=== PATIENT | female | born 1960 | race Caucasian/White ===

== ENCOUNTER 2017-02-02 08:51 | Emergency (ER) | payer BC ==
--- NOTE | 2017-02-02 09:31 | UC ---
Throat Pain/Nasal Otis HPI - HPI Summary HPI Summary: ONSET TWO DAYS AGO WITH SORE THROAT AND HEADACHE.. NOW COUGH , CHILLS , LOW GRADE TEMP -99 AT HOME. NAUSEA, NO VOMITING. FATIGUE AND BODY ACHES, EAR PAIN. [ End ] - History of Current Complaint Chief Complaint: UCRespiratory Stated Complaint: THROAT,NAUSEA Time Seen by Provider: 02/02/17 09:23 Hx Obtained From: Patient Onset/Duration: Gradual Onset Associated Signs & Symptoms: Positive: Negative - Allergies/Home Medications Allergies/Adverse Reactions: Allergies Allergy/AdvReac Type Severity Reaction Status Date / Time Hepatitis B Virus Vaccine Allergy Intermediate Rash Verified 02/02/17 09:08 Nitrofurantoin Allergy Intermediate Vomiting Verified 02/02/17 09:05 [From Macrodantin] OTHER MEDS , UNKNOW NAMES AdvReac Unknown Unknown Uncoded 02/02/17 09:09 Reaction Details Home Medications: Home Medications Albuterol 2.5MG/3ML (0.083%)* [Ventolin 2.5 MG/3 ML NEB.MONICA*] 2.5 mg INH Q4H PRN 02/02/17 [History Confirmed 02/02/17] Albuterol HFA INHALER* [Ventolin HFA Inhaler*] 2 puff INH Q4H PRN 02/02/17 [ History Confirmed 02/02/17] Dextromethorphan-Phenylephrine [Day Time Multi-Symptom Co 10-5-325 mg] 1 cap PO PRN 02/02/17 [History] Fluticasone-Salmeterol 500-50* [Advair Diskus 500-50*] 1 puff INH BID 02/02/17 [ History Confirmed 02/02/17] Folic Acid TAB* [Folvite TAB*] 1 mg PO DAILY 02/02/17 [History Confirmed ] Loratadine [Claritin 10 MG CAP] 10 mg PO DAILY 02/02/17 [History Confirmed 02/02] Methotrexate Sodium [Trexall] 20 mg PO 02/02/17 [History] Simvastatin [Zocor 40 MG (NF)] 40 mg PO QPM 02/02/17 [History Confirmed 02/02/17 ] PMH/Surg Hx/FS Hx/Imm Hx Previously Healthy: Yes Respiratory History: Asthma - Surgical History Surgical History: Yes Surgery Procedure, Year, and Place: D&C. PLACIDO THYROID. DEVIATED SEPTUM R EPAIR. NECK LYMPH NODE EXCISION. C- SECTION - Family History Known Family History: Positive: None - Social History Occupation: Employed Full-time Lives: With Family Alcohol Use: Occasionally Substance Use Type: None Smoking Status (MU): Heavy Every Day Tobacco Smoker Type: Cigarettes Amount Used/How Often: 1 PPD Household Exposure Type: Cigarettes Review of Systems Constitutional: Fatigue ENT: Sore Throat All Other Systems Reviewed And Are Negative: Yes Physical Exam Triage Information Reviewed: Yes Appearance: Well-Appearing, No Pain Distress, Well-Nourished Vital Signs: Initial Vital Signs Temp 99 F 02/02/17 09:13 Pulse 78 02/02/17 09:13 Resp 18 02/02/17 09:13 BP 128/78 02/02/17 09:13 Pulse Ox 97 02/02/17 09:13 Vital Signs Reviewed: Yes Eye Exam: Normal ENT Exam: Normal ENT: Positive: Pharynx normal, Pharyngeal erythema, Nasal congestion, TMs normal Dental Exam: Normal Neck exam: Normal Neck: Positive: 1 Respiratory Exam: Normal Cardiovascular Exam: Normal Musculoskeletal Exam: Normal Neurological Exam: Normal Psychological Exam: Normal Skin Exam: Normal Throat Pain/Nasal Course/Dx - Course Course Of Treatment: start probiotics -- aware of SE of amox but states she has taken before without difficulty and requests diflucan as she often get yeast infection from antibiotics - Differential Dx/Diagnosis Differential Diagnosis/HQI/PQRI: Peritonsillar Abscess, Pharyngitis, Tonsillitis , URI Provider Diagnoses: strep throat Discharge - Discharge Plan Condition: Good Disposition: HOME Prescriptions: Amoxicillin (*) [Amoxicillin 875 MG (*)] 875 mg PO BID #20 tab Fluconazole [Diflucan 150 MG (NF)] 150 mg PO ONCE #1 tab Lidocaine 2% VISCOUS* 5 ml PO TID PRN #1 btl NS PRN Reason: Sore Throat Patient Education Materials: Strep Throat (ED) Referrals: Angy Coulter MD [Primary Care Provider] - 3 Days
[2017-02-02 09:34] VITALS: BP 128/78
== END 2017-02-02 09:55 | disposition home or self-care (01) ==
LOC: UCCORT 08:51
DX: J02.0 Streptococcal pharyngitis (principal); F17.210 Nicotine dependence, cigarettes, uncomplicated; J45.909 Unspecified asthma, uncomplicated
CPT/HCPCS: 87651; 99212; G0463

== ENCOUNTER 2017-11-19 08:56 | Emergency (ER) | payer BC ==
--- OUTSIDE RECORDS SUMMARY | 2017-11-19 09:12 | XMS REPORT ---
:1960 External Reference #:[id number] Author Organization [employer] Address [address] [place] [address] Phone [phone] Care Team Providers Name Role Phone Angy Coulter MD Care Team Information Steward/Stewardess Third Unavailable Angy Coulter MD Primary Care Physician Unavailable Payers Type Date Identification Numbers Payment Provider Subscriber Commercial Policy Number: [id number] [employer] Jess Feng PayID: [id number] [address] [address] Commercial Expires: 2017 Policy Number: [id number] JE[employer] Aaron Feng PayID: [id number] [address] [place] [address] Problems Description No Information Family History Date Family Member(s) Problem(s) Comments General Hearing Loss General Diabetes General Bladder Cancer General Asthma And Allergies Father Hearing Loss Father Hypercholesterolemia Father Bladder Cancer Mother Diverticulitis Mother Hypercholesterolemia Social History Type Date Description Comments Marital Status Occupation [employer] Work Status Currently Working Cigarette Use Quit 1 Year Ago ETOH Use Current Alcohol Use - 1-3 Days A Week. Recreational Drug Use Denies Drug Use Allergies, Adverse Reactions, Alerts Date Description Reaction Status Severity Comments 07/24/2009 Macrodantin active vomiting Medications Medication Date Status Form Strength Qnty SIG Indications Ordering Provider Advair Diskus / Active Misc 500-50mcg/ 2 po qd Unknown 0000 DO Simvastatin 00/ Active Tablets 40mg daily Unknown 0000 Calcium 600 + 00/ Active Tablets 600-400mg- 1 po daily Unknown D 0000 Unit Folic Acid / Active Capsules 10mg daily Unknown 0000 Methotrexate 00/ Active Tablets 6 tabs Unknown 0000 once a week Advair Diskus / Active Aerosol 500-50mcg/ 1 puff Unknown 0000 Dose twice daily Spiriva / Active Aerosol 2.5mcg/Act take 2 Unknown Respimat 0000 puffs once daily. Clindamycin 09/01/ Hx Capsules 300mg 20caps 1 po bid Connor HCL 2013 - for 10 Dieudonne, 11/07/ days M.D. 2017 Prednisone 09/01/ Hx Tablets 10mg 3tabs 1 po qam Connor, 2013 - Dieudonne, 11/07/ M.D. 2017 Zithromax 09/18/ Hx Tablets 250mg 1Pak as Estevan Ryan 2009 - directed Dieudonne, 07/30/ M.D. 2009 Prednisone 09/11/ Hx Tablets 10mg 7tabs 1 po qam X Connor 2009 - 1 WK. Dieudonne, M.D. 2009 Percocet 08/22/ Hx Tablets 5-325mg 30tabs 2 po qid Connor 2009 - prn for Dieudonne, M.D. 2009 Erythrocin 08/22/ Hx Tablets 500mg 20tabs 1 po bid Connor Stearate 2009 - days Dieudonne, 07/30/ M.D. 2009 Calcium-D / Hx Capsules 600-200mg- Unknown 0000 - Un 2009 Vitamin C / Hx Unknown 2009 Vitamin B-12 / Hx Tablets Sub 1000mcg Unknown 2009 Zocor / Hx Tablets 20mg Unknown 2009 Albuterol / Hx Nebulizer (5mg/ML) Unknown Sulfate 0000 - 0.5 2013 Bactrim DS / Hx Tablets 800-160mg 20tabs 1 po bid Unknown 2009 Simvastatin 00/ Hx Tablets 40mg Unknown 2009 Detrol LA / Hx Caps ER 4mg Qday Unknown 0000 - 24HR 2009 Tylenol 8 Hour / Hx Tablets ER 650mg 20tabs prn Unknown 2009 Simvastatin / Hx Tablets 50mg Qday Unknown 2013 Citalopram / Hx Tablets 10mg 30tabs 1 po qd Unknown Hydrobromide 2013 Acyclovir / Hx Tablets 400mg 25tabs bid prn Unknown 2013 Calcium / Hx Tablets 1000mg Unknown 2013 Vitamin C / Hx Tablets 500mg qday Unknown 2013 Vitamin B-12 / Hx Tablet 1000mcg Unknown 2013 Vital Signs Date Vital Result Comment 11/07/2017 Weight 121.25 lb Height 67 inches 5'7" BMI (Body Mass Index) 19.0 kg/m2 BP Systolic 145 mmHg BP Diastolic 89 mmHg Heart Rate 84 /min O2 % BldC Oximetry 98 % room air Body Temperature 97.6 F Pain Level 0 09/01/2013 Weight 114.00 lb Height 67 inches 5'7" BMI (Body Mass Index) 17.9 kg/m2 BP Systolic 140 mmHg BP Diastolic 70 mmHg Heart Rate 76 /min Body Temperature 98.9 F 03/11/2011 Weight 121.00 lb Height 67 inches 5'7" BMI (Body Mass Index) 18.9 kg/m2 BP Systolic 104 mmHg BP Diastolic 78 mmHg Heart Rate 78 /min O2 % BldC Oximetry 95 % Body Temperature 97.4 F 09/10/2010 Heart Rate 88 /min O2 % BldC Oximetry 96 % Body Temperature 97.6 F 08/10/2010 Body Temperature 97.5 F 07/30/2010 Weight 129.00 lb Height 67 inches 5'7" BMI (Body Mass Index) 20.2 kg/m2 BP Systolic 110 mmHg BP Diastolic 80 mmHg Heart Rate 88 /min Body Temperature 98.8 F 09/18/2009 Weight 126.12 lb Height 67 inches 5'7" BMI (Body Mass Index) 19.8 kg/m2 BP Systolic 124 mmHg BP Diastolic 76 mmHg Heart Rate 96 /min Body Temperature 98.3 F 07/24/2009 Weight 126.00 lb Height 67 inches 5'7" BMI (Body Mass Index) 19.7 kg/m2 BP Systolic 102 mmHg BP Diastolic 62 mmHg Heart Rate 94 /min O2 % BldC Oximetry 97 % Body Temperature 98.0 F Results Test Date Test Result H/L Range Note Laboratory test finding 01/11/2011 Vitamin D,1,25 40.6 pg/mL 10.0-75.0 1 Dihydroxy Thyroid Stim Hormone 3.33 uIU/mL 0.49-4.67 2 Free T4 0.70 ng/dL Low 0.71-1.85 3 Liver Function Tests 01/11/2011 Total Protein 7.0 g/dL 6.3-8.0 Albumin 4.0 g/dL 3.5-5.0 Bilirubin,Total 0.4 mg/dL 0.2-1.2 Bilirubin,Direct 0.1 mg/dL 0.1-0.4 Bilirubin,Indirect 0.3 mg/dL 0.0-0.9 Sgot/Ast 17 U/L 16-40 SGPT/Alt 37 U/L 30-65 Alkaline Phosphatase 169 U/L High 50-136 Globulin 3.0 gm/dL 1.9-4.3 Alb/Glob 1.3 LDL Cholesterol Profile 01/11/2011 Cholesterol 217 mg/dL High 120-200 Triglycerides 95 mg/dL 0-210 HDL Cholesterol 63 mg/dL 32-96 LDL-Cholesterol 135 mg/dL 62-185 TSH+Free T4 08/10/2010 Thyroid Stim Hormone 1.15 uIU/mL 0.49-4.67 4 Free T4 0.66 ng/dL Low 0.71-1.85 5 Laboratory test finding 08/10/2010 Calcium 8.9 mg/dL 8.5-10.1 6 Laboratory test finding 08/02/2010 Thyroid,Lobe/Total RSXN + See Note 7 FS Urine Screen 07/30/2010 Urine Color YELLOW Yellow Urine Clarity CLEAR Clear Urine Glucose - Dipstick NEGATIVE mg/dL Negative Urine Bilirubin - Dipstick NEGATIVE Negative Urine Ketone NEGATIVE mg/dL Negative Urine Specific [place] 1.025 1.010-1.030 Urine Blood NEGATIVE Negative Urine PH 5.5 Low 6.5-7.5 Urine Protein - Dipstick NEGATIVE mg/dL Negative Urine Urobilinogen - Dipstick 0.2 E.U./dL 0.2-1.0 Urine Nitrite - Dipstick NEGATIVE Negative Urine Leuk Esterase NEGATIVE Negative Laboratory test finding 07/30/2010 Thyroid Stim Hormone 0.31 uIU/mL Low 0.49-4.67 8 Free T4 0.87 ng/dL 0.71-1.85 9 Basic Metabolic Panel 07/30/2010 Glucose 109 mg/dL 76-115 BUN 15 mg/dL 5-23 Creatinine 0.7 mg/dL 0.5-1.4 Glom Filtration Rate, Estimate >60 mL/min >60 If >60 mL/min >60 10 BUN/Creat 21.4 Sodium 141 mEq/L 136-145 Potassium 3.8 mEq/L 3.5-5.1 Chloride 107 mEq/L 98-107 Carbon Dioxide 29 mEq/L 21-32 Anion Gap 9 mEq/L 8-16 Calcium 8.9 mg/dL 8.5-10.1 Laboratory test finding 07/30/2010 Phosphorous 3.0 mg/dL 2.4-4.7 11 Sgot/Ast 19 U/L 16-40 12 CBC 07/30/2010 White Blood Count 7.3 K/uL 3.1-10.7 Red Blood Count 4.58 M/uL 3.90-5.40 Hemoglobin 14.8 gm/dL 11.6-15.8 Hematocrit 44.9 % 36.0-46.1 Mean Cell Volume 98.0 fl 80.9-99.0 Mean Corpuscular HGB 32.3 pg 25.9-32.7 Mean Corpuscular HGB Conc 33.0 g/dL 30.8-34.3 Platelet Count 286 K/uL 155-360 Red Cell Distri Width %CV 13.1 % 11.7-14.4 Mean Platelet Volume 9.4 fL 8.9-12.4 Laboratory test finding 06/02/2010 Cytology,Thyroid Fna (SEE NOTE) 13 Laboratory test finding 05/24/2010 Ferritin 66.0 ng/mL 3-105 14 Liver Function Tests 05/24/2010 Total Protein 7.4 g/dL 6.3-8.0 Albumin 4.4 g/dL 3.5-5.0 Bilirubin,Total 0.3 mg/dL 0.2-1.2 Bilirubin,Direct 0.1 mg/dL 0.1-0.4 Bilirubin,Indirect 0.2 mg/dL 0.0-0.9 Sgot/Ast 25 U/L 16-40 SGPT/Alt 45 U/L 30-65 Alkaline Phosphatase 190 U/L High 50-136 Globulin 3.0 gm/dL 1.9-4.3 Alb/Glob 1.5 Laboratory test finding 05/24/2010 Glucose 102 mg/dL 76-115 15 LDL Cholesterol Profile 05/24/2010 Cholesterol 214 mg/dL High 120-200 Triglycerides 81 mg/dL 0-210 HDL Cholesterol 57 mg/dL 32-96 LDL-Cholesterol 141 mg/dL 62-185 Laboratory test finding 05/24/2010 Vitamin D,25-Hydroxy 34.9 ng/mL 32.0- 100.0 16 CBC 05/24/2010 White Blood Count 8.3 K/uL 3.1-10.7 Red Blood Count 4.59 M/uL 3.90-5.40 Hemoglobin 15.3 gm/dL 11.6-15.8 Hematocrit 45.0 % 36.0-46.1 Mean Cell Volume 98.0 fl 80.9-99.0 Mean Corpuscular HGB 33.3 pg High 25.9-32.7 Mean Corpuscular HGB Conc 34.0 g/dL 30.8-34.3 Platelet Count 253 K/uL 155-360 Red Cell Distri Width %CV 12.8 % 11.7-14.4 Mean Platelet Volume 10.3 fL 8.9-12.4 Laboratory test finding 05/24/2010 Thyroxine (T4) 6.7 g/dL 4.5-12.0 17 Thyroid Stim Hormone 0.26 uIU/mL Low 0.49-4.67 18 Free T4 0.84 ng/dL 0.71-1.85 19 Laboratory test finding 09/21/2009 Lymph Node Biopsy See Note 20 Basic Metabolic Panel 09/18/2009 Glucose 74 mg/dL Low 76-115 BUN 13 mg/dL 5-23 Creatinine 0.7 mg/dL 0.5-1.4 Glom Filtration Rate, Estimate >60 mL/min >60 If >60 mL/min >60 21 BUN/Creat 18.5 Sodium 140 mEq/L 136-145 Potassium 4.0 mEq/L 3.5-5.1 Chloride 104 mEq/L 98-107 Carbon Dioxide 27 mEq/L 21-32 Anion Gap 13 mEq/L 8-16 Calcium 9.1 mg/dL 8.5-10.1 Laboratory test finding 09/18/2009 Sgot/Ast 27 U/L 16-40 CBC 09/18/2009 White Blood Count 8.3 K/uL 3.1-10.7 Red Blood Count 4.71 M/uL 3.90-5.40 Hemoglobin 15.5 gm/dL 11.6-15.8 Hematocrit 46.3 % High 36.0-46.1 Mean Cell Volume 98.3 fl 80.9-99.0 Mean Corpuscular HGB 32.9 pg High 25.9-32.7 Mean Corpuscular HGB Conc 33.5 g/dL 30.8-34.3 Platelet Count 274 K/uL 155-360 Red Cell Distri Width %CV 13.3 % 11.7-14.4 Mean Platelet Volume 9.9 fL 8.9-12.4 Laboratory test finding 09/18/2009 Urine Screen See Note 22 Urinalysis With Microscopic 09/18/2009 Urine Color YELLOW Yellow Urine Clarity CLEAR Clear Urine Glucose - Dipstick NEGATIVE mg/dL Negative Urine Bilirubin - Dipstick NEGATIVE Negative Urine Ketone NEGATIVE mg/dL Negative Urine Specific [place] 1.025 1.010-1.030 Urine Blood TRACE Negative Urine PH 5.0 Low 6.5-7.5 Urine Protein - Dipstick NEGATIVE mg/dL Negative Urine Urobilinogen - Dipstick 0.2 E.U./dL 0.2-1.0 Urine Nitrite - Dipstick NEGATIVE Negative Urine Leuk Esterase NEGATIVE Negative Urine RBC 0-2 rbc/hpf 0-7 Urine WBC 0-2 wbc/hpf 0-7 Urine Epithelial Cells MODERATE NONESEEN 23 Urine Bacteria FEW NONESEEN Urine Hyaline Cast 0-2 NONESEEN#/lp Urine Mucus SMALL NONESEEN Urine Amorph Sediment SMALL Negative 1 Performed at: [address] [id number] Scrubber System Attendant: Jcarlos Valencia MD, Phone: [phone] 2 The specimen as originally received did not conform to [facility]'s Specimen Labeling Policy. An Outreach Specimen Correction form is on file authorizing testing on this compromised specimen. QUERY: @EMR Pat ID: QUERY: @EMR Req #: 3 The specimen as originally received did not conform to [facility]'s Specimen Labeling Policy. An Outreach Specimen Correction form is on file authorizing testing on this compromised specimen. QUERY: @EMR Pat ID: QUERY: @EMR Req #: 4 QUERY: @EMR Pat ID: QUERY: @EMR Req #: 5 QUERY: @EMR Pat ID: QUERY: @EMR Req #: 6 QUERY: @EMR Pat ID: QUERY: @EMR Req #: 7 OPERATION/PROCEDURE Right hemithyroidectomy DIAGNOSIS: "RIGHT THYROID LOBE": FOLLICULAR ADENOMA, BENIGN. HISTOLOGICALLY NORMAL APPEARING PARATHYROID GLAND. WYS/anurag 1050 FROZEN SECTION DIAGNOSIS TOUCH PREPERATIONS BY DR. JEFFERY SPANGLER MOST LIKELY HYPERPLASTIC NODULE. GROSS The specimen is received fresh labeled, "RIGHT THYROID LOBE FOR FS" is a 4.5 x 2.1 x 1.6 cm. garcia soft beefy red thyroid weighing 6 grams in toto. The entire surface is inked and the specimen is serially sectioned. On cut surface a 0.9 cm. nodule is seen at the mid portion of the thyroid. The cut surface of the nodule is garcia and homogenous. There is no evidence of necrosis. There is focal hemorrhage consistent with the previous biopsy. This nodule appears to be well circumscribed. Touch Preps were performed. Touch preps show many small dyscohesive benign appearing follicular cells in the background of thin watery colloid and blood. The thyroid is submitted in total in 7 blocks. JW/clf MICROSCOPIC The nodule within the thyroid is found to be composed of a combination of macrofollicular and microfollicular structures. There is no significant nuclear atypia within any of the lining cells. Capsule surrounding this expansion is thin delicate and incomplete. Compressed slit like glands can be seen along the periphery with a morphology exterior to this expansion of more uniform follicles. Sampling of parenchyma outside of the nodule demonstrates more uniform and normal appearing follicular MICROSCOPIC (Continued) architecture. No evidence of neoplastic change is noted. The section A demonstrates parathyroid gland parenchyma, with no significant deviation from normal. Several foci of granulomatous inflammation are consistent with prior needle biopsy tracts. PRE OPERATIVE DIAGNOSIS Thyroid enlargement with nodules REVIEW CODE CODE: I JCARLOS Canela MD 08/06/10 8 A low TSH should not be the sole basis for diagnosing primary hyperthyroidism, or primary hypopituitary function. Additional tests are suggested for confirmation. 9 QUERY: @EMR Pat ID: QUERY: @EMR Req #: 10 Note: Persistent reduction for 3 months or more in an eGFR <60 mL/min/1.73 m2 defines CKD. Patients with eGFR values >/=60 mL/min/1.73 m2 may also have CKD if evidence of persistent proteinuria is present. The original MDRD equation for estimated GFR is not valid for patients less than 18 years of age. Additional information may be found at www.kdoqi.org. 11 QUERY: @EMR Pat ID: QUERY: @EMR Req #: 12 QUERY: @EMR Pat ID: QUERY: @EMR Req #: 13 NON-GYNECOLOGICAL CYTOLOGY REPORT Cytology, Thyroid FNA Report Status: FINAL Clinical Information and/or Impression: 784.2 A) 30Ml Light yellow fluid Three giemsa stained slides received One fixed slide received DIAGNOSIS: A) Thyroid (Fine needle aspiration biopsy): Benign. No evidence of malignancy identified. Follicular cells and colloid. Findings are compatible with adenomatoid nodule or nodular goiter. SK:jaswinder 06/06/10 CLEANING ATTENDANT: KELSEY ROCHE([facility]) For informational purposes: All cytology specimens are processed at [employer]. [address] [place] [address], [place] [address] PATHOLOGIST: Corrine Hernández M.D. Board Certified in Anatomic and Clinical Pathology, and Cytopathology (electronic signature) For questions regarding this report call Anatomic Pathology at [phone] 14 QUERY: @[facility] Pat ID: QUERY: @EMR Req #: 15 QUERY: @[facility] Pat ID: QUERY: @EMR Req #: QUERY: Is the Patient Fasting? U 16 Recent studies consider the lower limit of 32.0 ng/mL to be a threshold for optimal health. Gabriel GÓMEZ. J Nutr. 2004;135(2):317-22. Performed at: RN - [facility] [address] [id number] Scrubber System Attendant: Jovany Clark MD, Phone: [phone] 17 QUERY: @[facility] Pat ID: QUERY: @[facility] Req #: 18 A low TSH should not be the sole basis for diagnosing primary hyperthyroidism, or primary hypopituitary function. Additional tests are suggested for confirmation. 19 QUERY: @[facility] Pat ID: QUERY: @[facility] Req #: 20 OPERATION/PROCEDURE Excision left neck mass DIAGNOSIS: "LEFT NECK LYMPH NODE": MILD FOLLICULAR HYPERPLASIA OF LYMPH NODE, BENIGN, NONSPECIFIC. WYS/anurag 7566 FROZEN SECTION DIAGNOSIS INTRAOPERATIVE CONSULTATION BY CYTOLOGIC EXAMINATION BY DR. MCRAE: NO EVIDENCE OF HIGH GRADE LYMPHOMA, REACTIVE APPEARING LYMPH NODE, POSSIBLY DERMATOPATHIC LYMPHADENITIS. GROSS The specimen is received in a single container additionally labeled "LYMPH NODE LEFT NECK" in a fresh state. This contains a grossly recognizable pink 1.3 x 0.8 x 0.6 cm. lobulated mass. This is bisected and touch imprints are performed to determine subsequent handling. The cut surface of the lymph node is light pink and homogenous. The specimen is entirely submitted within a single cassette. WS/anurag MICROSCOPIC These sections show a lymph node with nonneoplastic appearing cortex, paracortex and medullary regions. There is mild expansion of the follicular regions relative to the other compartments of the lymph node. PRE OPERATIVE DIAGNOSIS Left lymph node enlargement REVIEW CODE CODE: I JCARLOS Canela MD 09/22/09 21 Note: Persistent reduction for 3 months or more in an eGFR <60 mL/min/1.73 m2 defines CKD. Patients with eGFR values >/=60 mL/min/1.73 m2 may also have CKD if evidence of persistent proteinuria is present. The original MDRD equation for estimated GFR is not valid for patients less than 18 years of age. Additional information may be found at www.kdoqi.org. 22 09/18/09 LAB.[facility]OM Deleted by [facility]ACOM 23 POSSIBLE UROGENITAL CONTAMINATION. Procedures Date CPT Code Description Status 11/07/2017 44287 Tympanometry Completed 11/07/2017 20559 Audiometry, Comprehensive Completed 09/01/2013 88048 Audiometry, Comprehensive Completed 09/01/2013 07828 Audiometry, Comprehensive Completed 09/01/2013 44606 Ultrasound Head/Neck Completed 09/01/2013 17268 Ultrasound Head/Neck Completed 03/11/2011 99665 Ultrasound Head/Neck Completed 08/02/2010 28922 Tot.Thyroid Lobect./Unil./Isthmus Completed 08/02/2010 74909 Tot.Thyroid Lobect./Unil./Isthmus Completed 08/02/2010 70701 Continuous Monitoring Laryngea Completed 08/02/2010 36748 Intraop Neurophysiology Testing Completed 06/02/2010 81973 Fna W/Image Completed 01/22/2010 82989 Ultrasound Head/Neck Completed 09/21/2009 92461 Larynogoscopy,Dir. With Or W/O Trach. Diag. W/Opert. Completed Microscope 09/21/2009 87518 Septoplasty Completed 09/21/2009 12235 Submucous Resect.Turb.Par Or Comp Completed 09/21/2009 02583 Submucous Resect.Turb.Par Or Comp Completed 09/21/2009 74313 Exc.Tumor Soft Tiss Neck Or Thyro Completed 07/29/2009 17062 Ultrasound Head/Neck Completed 07/24/2009 88645 Fiberoptic Laryngoscopy,Diag. Completed Encounters Type Date Location Provider CPT E/M Dx Office Visit 11/07/2017 10:30a [place] [address] H69.93 Office Visit 09/01/2013 4:00p [place] [address] 246.9 478.0 473.9 381.81 785.6 Office Visit 03/11/2011 9:00a Main Office Dieudonne Ryan M.D. 13362 246.9 784.2 Office Visit 01/22/2010 9:00a Main Office Dieudonne Ryan M.D. 57837 784.2 246.9 Office Visit 09/18/2009 9:00a [place] [address] 785.6 784.2 478.0 528.9 470 Office Visit 08/28/2009 11:00a Main Office Dieudonne Ryan M.D. 34487 785.6 784.2 478.0 528.9 470 Office Visit 08/22/2009 11:30a Main Office Dieudonne Ryan M.D. 51389 785.6 784.2 478.0 470 528.9 Office Visit 08/08/2009 9:15a Main Office Dieudonne Ryan M.D. 43867 785.6 784.2 478.0 470 Office Visit 07/29/2009 10:30a Main Office Dieudonne Ryan M.D. 02451 785.6 784.2 478.0 470 Office Visit 07/24/2009 2:30p Main Office Dieudonne Ryan M.D. 39672 785.6 784.2 470 478.0 Plan of Care No Information Available
--- OUTSIDE RECORDS SUMMARY | 2017-11-19 09:13 | XMS REPORT ---
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 Angy Coulter MD Primary Care Physician Unavailable Payers Type Date Identification Numbers Payment Provider Subscriber Commercial Policy Number: [id number] [employer] Jess Feng PayID: [id number] [address] [address] Commercial Expires: 2017 Policy Number: [id number] [employer] Aaron Feng PayID: [id number] [address] [address] Problems Description No Information Family History Date Family Member(s) Problem(s) Comments General Hearing Loss General Diabetes General Bladder Cancer General Asthma And Allergies Father Hearing Loss Father Hypercholesterolemia Father Bladder Cancer Mother Diverticulitis Mother Hypercholesterolemia Social History Type Date Description Comments Marital Status 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 An Outreach Specimen Correction form is on file authorizing testing on this compromised specimen. QUERY: @EMR Pat ID: QUERY: @EMR Req #: 3 The specimen as originally received did not conform to [facility]'s Specimen Labeling Policy. An Outreach Specimen Correction [...] adenomatoid nodule or nodular goiter. SK:jaswinder 06/06/10 USER INTERFACE ENGINEER: KELSEY ROCHE([facility]) For informational purposes: [facility] cytology [facility]. [address] [place] [address], [place] [address] PATHOLOGIST: Corrine Hernández M.D. Board Certified in Anatomic and Clinical Pathology, and Cytopathology (electronic signature) For questions regarding this report call Anatomic Pathology at [phone] QUERY: @BANNER Pat ID: QUERY: @EMR Req #: 15 QUERY: @BANNER Pat ID: QUERY: @EMR Req #: QUERY: Is the Patient Fasting? U 16 Recent studies consider the lower limit of 32.0 ng/mL to be a threshold for optimal health. Gabriel GÓMEZ. J Nutr. 2004;135(2):317-22. Performed at: RN - [facility] [address] [id number] Sizing Sprayer: Jovany Clark MD, Phone: [phone] QUERY: @BANNER Pat ID: QUERY: @BANNER Req #: 18 A low TSH should not be the sole basis for diagnosing primary hyperthyroidism, or primary hypopituitary function. Additional tests are suggested for confirmation. 19 QUERY: @BANNER Pat ID: QUERY: @BANNER Req #: 20 OPERATION/PROCEDURE Excision left neck mass DIAGNOSIS: "LEFT NECK LYMPH NODE": MILD FOLLICULAR HYPERPLASIA OF LYMPH NODE, BENIGN, NONSPECIFIC. WYS/anurag 4336 FROZEN SECTION DIAGNOSIS INTRAOPERATIVE CONSULTATION BY CYTOLOGIC [...] may be found at [email or web address]. 22 09/18/09 [email or web address] Deleted by [facility] 23 POSSIBLE UROGENITAL CONTAMINATION. Procedures Date CPT Code Description Status 09/01/2013 98566 Audiometry, Comprehensive Completed 09/01/2013 73917 Audiometry, Comprehensive Completed 09/01/2013 51218 Ultrasound Head/Neck Completed 09/01/2013 08385 Ultrasound Head/Neck Completed 03/11/2011 36225 Ultrasound Head/Neck Completed 08/02/2010 45345 Intraop Neurophysiology Testing Completed 08/02/2010 10511 Continuous Monitoring Laryngea Completed 08/02/2010 79131 Tot.Thyroid Lobect./Unil./Isthmus Completed 08/02/2010 07536 Tot.Thyroid Lobect./Unil./Isthmus Completed 06/02/2010 62634 Fna W/Image Completed 01/22/2010 46468 Ultrasound Head/Neck Completed 09/21/2009 55658 Larynogoscopy,Dir. With Or W/O Trach. Diag. W/Opert. Completed Microscope 09/21/2009 43522 Septoplasty Completed 09/21/2009 08308 Submucous Resect.Turb.Par Or Comp Completed 09/21/2009 60525 Submucous Resect.Turb.Par Or Comp Completed 09/21/2009 13359 Exc.Tumor Soft Tiss Neck Or Thyro Completed 07/29/2009 99688 Ultrasound Head/Neck Completed 07/24/2009 40213 Fiberoptic Laryngoscopy,Diag. Completed Encounters Type Date Location Provider CPT E/M Dx Office Visit 09/01/2013 4:00p [place] [address] 246.9 478.0 473.9 381.81 785.6 Office Visit 03/11/2011 9:00a Main Office Dieudonne Ryan M.D. 84840 246.9 784.2 Office Visit 01/22/2010 9:00a Main Office Dieudonne Ryan M.D. 93092 784.2 246.9 Office Visit 09/18/2009 9:00a [place] [address] 785.6 784.2 478.0 528.9 470 Office Visit 08/28/2009 11:00a Main Office Dieudonne Ryan M.D. 41095 785.6 784.2 478.0 528.9 470 Office Visit 08/22/2009 11:30a Main Office Dieudonne Ryan M.D. 74415 785.6 784.2 478.0 470 528.9 Office Visit 08/08/2009 9:15a Main Office Dieudonne Ryan M.D. 73030 785.6 784.2 478.0 470 Office Visit 07/29/2009 10:30a Main Office Dieudonne Ryan M.D. 45861 785.6 784.2 478.0 470 Office Visit 07/24/2009 2:30p Main Office Dieudonne Ryan M.D. 49096 785.6 784.2 470 478.0 Plan of Care No Information Available
--- OUTSIDE RECORDS SUMMARY | 2017-11-19 09:13 | XMS REPORT ---
:1960 External Reference #:[id number] Author Organization [facility] Address [address], [address] [place] [address] Phone [phone] Care Team Providers Name Role Phone Angy Coulter MD Care Team Information Qualification Engineer Unavailable Angy Coulter MD Primary Care Physician Unavailable Payers Type Date Identification Numbers Payment Provider Subscriber Commercial Expires: Policy Number: Damian Walker Ping 2017 [id number] PayID: [id number] [address] [address] [place] [address] Medigap Part B Effective: 2017 Policy Number: Damian Feng [id number] PayID: [id number] [address] [address] [place] [address] Medigap Part B Expires: 2008 Policy Number: Damian Feng [id number] PayID: [id number] [address] [address] [place] [address] Problems Date Description Provider Status Onset: 09/20/2015 Hyperlipidemia Angy Coulter MD Active Onset: 09/20/2015 Rheumatoid arthritis Angy Coultre MD Active Onset: 09/20/2015 Tobacco user Angy Coulter MD Active Onset: 03/20/2016 Uninodular goiter Angy Coulter MD Active Onset: 03/20/2016 Mild persistent asthma Angy Coulter MD Active Onset: 04/02/2017 Substance abuse counseling Angy Coulter MD Active Onset: 04/02/2017 Pruritus of skin Angy Coulter MD Active Onset: 04/02/2017 Mild intermittent asthma Angy Coulter MD Active Onset: 09/26/2016 Contact dermatitis Angy Coulter MD Active Onset: 09/26/2016 Acute frontal sinusitis Angy Coulter MD Active Onset: 04/11/2011 Breast finding Alton Benavides M.D. 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 08/31/2010 Percocet vomiting inactive Medications Medication Date Status Form Strength Qnty SIG Indications Ordering Provider Azithromycin 10/13/ Active Tablets 250mg 6tabs 2 tabs today Tracie 2018 and then 1 Ashley, live every PNP-BC, day for 4 COATER OPERATOR, more days Ibclc Polymyxin B 10/13/ Active Solution [id number] 10ml 2 drops in Tracie Sulfate/Trimet 2018 Unit/ML-% affected eye heena Ramirezridean Sulfate qid for 5-7 PNP-BC, days COATER OPERATOR, Ibclc Spiriva 04/03/ Active Aerosol 2.5mcg/Ac 4unit take 2 puffs Perez Respimat 2017 t s once daily. MD Arely Advair Diskus / Active Aerosol 500-50mcg 60uni 1 puff twice 0000 /Dose ts a day MD Yfn Simvastatin / Active Tablets 40mg 90tab 1 tab by 0000 s mouth at Yfn bedtime Albuterol / Active Nebulizer (2.5mg/3M 75ml as needed Tracie Sulfate 0000 L) 0.083% Ashley, PNP-BC, COATER OPERATOR, Ibclc Folic Acid / Active Tablets 1mg 1 by mouth Unknown 0000 every day Methotrexate / Active Tablets 2.5mg 3 by mouth Unknown 0000 per week Proair HFA / Active Aerosol 108(90Bas 8.500 1-2 Tracie 0000 e) gm inhalations Ashley, mcg/Act every 4 PNP-BC, hours as COATER OPERATOR, needed Ibclc Acyclovir / Active Capsules 200mg 200ca 1 cap by Angy 0000 ps mouth 5x/day Yfn at first MD onset of symptoms Calcium 600+D / Active Tablets 600-400mg 1 1/2 by Unknown High Potency 0000 -Unit mouth every day Prednisone 10/08/ Hx Tablets 50mg 3tabs 1 by mouth J44.1 Tracie 2017 - every day Ashley 10/13/ until gone PNP-BC, 2018 COATER OPERATOR, Ibclc Fluconazole 10/08/ Hx Tablets 200mg 7tabs 1 tab by J44.1 Tracie 2017 mouth Ashley, everyday for PNP-BC, 7 days COATER OPERATOR, Ibclc Fluconazole 09/30/ Hx Tablets 200mg 7tabs 1 tab by B37.0 Tracie 2017 - mouth Ashley, 10/07/ everyday for PNP-BC, 2018 7 days COATER OPERATOR, Ibclc Nystatin 09/30/ Hx Suspension [id number] 60ml 2 B37.0 Tracie 2018 t/ML milliliters Ashley, by mouth PNP-BC, four times a COATER OPERATOR, day Ibclc Fluconazole 08/20/ Hx Tablets 100mg 5tabs 1 by mouth 2017 - every day Yfn 09/30/ until gone 2017 Alendronate 04/30/ Hx Tablets 70mg 12tab take 1 Angy Sodium 2016 - s tablet by Yfn 08/12/ mouth once a 2017 week ALL Day 04/02/ Hx Tablets 10mg one by mouth Angy Allergy 2016 - daily Yfn 07/24/ 2016 Prednisone 04/02/ Hx Tablets 50mg 3tabs 1 by mouth L29.9 2016 - every day Yfn 04/28/ until gone 2016 Chantix 04/02/ Hx Tablets 0.5mg X 53tab use as F17.210 Angy Starting Month 2016 - & s directed on Yadiel Coulter 07/24/ 1 mg X 42 package 2016 Chantix 04/02/ Hx Tablets 1mg 60tab 1 by mouth F17.210 2016 - s twice a day, Yfn 07/24/ Begin After 2017 Finished With Starter Pack Fluconazole 12/23/ Hx Tablets 200mg 7tabs 1 tab po Tracie 2016 - qday for 7 Ashley, 12/30/ days PNP-BC, 2016 COATER OPERATOR, Ibclc Loratadine 12/23/ Hx Tablets 10mg 30tab 1 by mouth L29.9 Tracie 2016 - s every day as Ashley, 04/02/ needed for PNP-BC, 2016 nasal COATER OPERATOR, congestion Ibclc Fluconazole 10/09/ Hx Tablets 100mg 8tabs 2 tabs by B37.0 Tracie 2016 - mouth day 1 Ashley, 12/03/ and then 1 PNP-BC, 2016 tab by mouth COATER OPERATOR, for 6 more Ibclc days Cefdinir 09/26/ Hx Capsules 300mg 20cap 1 by mouth J01.10 2016 - s twice a day Yfn 10/09/ 2016 Prednisone 09/26/ Hx Tablets 50mg 3tabs 1 by mouth L30.9 2016 - every day Yfn 10/09/ until gone 2016 Spiriva 07/23/ Hx Aerosol 2.5mcg/Ac 4gm take 2 puffs J44.9 Perez Respimat 2016 - t once daily. MD Arely 2016 Nicotine Step 09/20/ Hx Patches 7mg/24HR 14uni 1 patch on F17.210 2015 - 24HR ts each am; Yfn 03/20/ 2016 Citalopram / Hx Tablets 10mg 30tab 1 po qd Unknown Hydrobromide 0000 - s 2015 Calcium/Vitami / Hx Once A Day Unknown n D 0000 Vitamin C / Hx Chewtabs 500mg qd Unknown 0000 - 2015 Vitamin B / Hx Tablets 1 po qd Unknown 0000 - 2015 Acyclovir / Hx Tablets 400mg 63tab 1 tab 3x/day - s as soon as Yfn 03/20/ symptoms 2016 begin,take for 7 days Humira Pen / Hx PNKT 40mg/0.8M Unknown 0000 - L 2016 Immunizations CPT Code Status Date Vaccine Lot # [id number] Given 09/30/2017 Influenza Virus Vaccine, Quadrivalent, Slit Virus, [id number] Im Use [id number] Given 04/02/2017 Tdap injection [id number] Given 09/09/2016 Influenza Virus Vaccine Split Virus Use For Individual 3Yr Older Vital Signs Date Vital Result Comment 10/08/2017 BP Systolic Sitting Right Arm 118 mmHg BP Diastolic Sitting Right Arm 66 mmHg Heart Rate 79 /min Respiratory Rate 14 /min Height 67.6 inches 5'7.60" Weight 113.00 lb BMI (Body Mass Index) 17.4 kg/m2 BSA (Body Surface Area) 1.60 m2 [place] body weight in kilograms 63 O2 % BldC Oximetry 97 % room air 10/08/2017 BP Systolic 120 mmHg BP Diastolic 76 mmHg Body Temperature 97.0 F Heart Rate 93 /min Height 67.6 inches 5'7.60" Weight 112.00 lb BMI (Body Mass Index) 17.2 kg/m2 BSA (Body Surface Area) 1.59 m2 [place] body weight in kilograms 63 O2 % BldC Oximetry 97 % 09/30/2017 BP Systolic 110 mmHg BP Diastolic 72 mmHg Body Temperature 97.8 F Heart Rate 83 /min Respiratory Rate 17 /min Height 67.6 inches 5'7.60" Weight 114.00 lb BMI (Body Mass Index) 17.5 kg/m2 BSA (Body Surface Area) 1.60 m2 [place] body weight in kilograms 63 O2 % BldC Oximetry 98 % 09/03/2017 BP Systolic Sitting Left Arm 106 mmHg BP Diastolic Sitting Left Arm 70 mmHg Heart Rate 100 /min Respiratory Rate 16 /min Height 67.6 inches 5'7.60" Weight 113.00 lb BMI (Body Mass Index) 17.4 kg/m2 BSA (Body Surface Area) 1.60 m2 [place] body weight in kilograms 63 O2 % BldC Oximetry 98 % room air 08/12/2017 BP Systolic 100 mmHg BP Diastolic 62 mmHg Body Temperature 97.7 F Heart Rate 108 /min Height 67.6 inches 5'7.60" Weight 109.00 lb BMI (Body Mass Index) 16.8 kg/m2 BSA (Body Surface Area) 1.57 m2 [place] body weight in kilograms 63 O2 % BldC Oximetry 84 % 04/03/2017 BP Systolic Sitting Right Arm 120 mmHg BP Diastolic Sitting Right Arm 72 mmHg Heart Rate 84 /min Respiratory Rate 16 /min Height 67.6 inches 5'7.60" Weight 104.00 lb BMI (Body Mass Index) 16.0 kg/m2 BSA (Body Surface Area) 1.54 m2 [place] body weight in kilograms 63 O2 % BldC Oximetry 98 % Room air 04/02/2017 BP Systolic 102 mmHg BP Diastolic 60 mmHg Height 67.6 inches 5'7.60" Weight 102.00 lb BMI (Body Mass Index) 15.7 kg/m2 BSA (Body Surface Area) 1.53 m2 [place] body weight in kilograms 63 12/23/2016 BP Systolic Sitting Left Arm 142 mmHg BP Diastolic Sitting Left Arm 78 mmHg Body Temperature 97.9 F Height 67.6 inches 5'7.60" Weight 108.00 lb BMI (Body Mass Index) 16.6 kg/m2 BSA (Body Surface Area) 1.57 m2 [place] body weight in kilograms 63 10/09/2016 BP Systolic Sitting Left Arm 104 mmHg BP Diastolic Sitting Left Arm 64 mmHg Body Temperature 99.2 F Height 67 inches 5'7" Weight 108.00 lb BMI (Body Mass Index) 16.9 kg/m2 BSA (Body Surface Area) 1.56 m2 [place] body weight in kilograms 61 09/26/2016 BP Systolic 126 mmHg BP Diastolic 72 mmHg Body Temperature 99.3 F Heart Rate 94 /min Respiratory Rate 18 /min Height 67 inches 5'7" Weight 110.00 lb BMI (Body Mass Index) 17.2 kg/m2 BSA (Body Surface Area) 1.57 m2 [place] body weight in kilograms 61 O2 % BldC Oximetry 97 % 07/23/2016 BP Systolic Sitting Right Arm 128 mmHg BP Diastolic Sitting Right Arm 80 mmHg Heart Rate 78 /min Respiratory Rate 16 /min Height 67 inches 5'7" Weight 114.00 lb BMI (Body Mass Index) 17.9 kg/m2 BSA (Body Surface Area) 1.59 m2 [place] body weight in kilograms 61 O2 % BldC Oximetry 95 % Room Air 04/02/2016 BP Systolic 98 mmHg BP Diastolic 60 mmHg Heart Rate 88 /min Respiratory Rate 18 /min Weight 113.00 lb O2 % BldC Oximetry 96 % Ra 03/20/2016 BP Systolic 118 mmHg BP Diastolic 74 mmHg BP Systolic Sitting Left Arm 135 mmHg BP Diastolic Sitting Left Arm 91 mmHg Heart Rate 74 /min Height 67.5 inches 5'7.50" Weight 112.50 lb BMI (Body Mass Index) 17.4 kg/m2 BSA (Body Surface Area) 1.59 m2 [place] body weight in kilograms 62 09/20/2015 BP Systolic 112 mmHg BP Diastolic 80 mmHg Body Temperature 99.5 F Heart Rate 63 /min Respiratory Rate 20 /min Height 67 inches 5'7" Weight 117.50 lb BMI (Body Mass Index) 18.4 kg/m2 BSA (Body Surface Area) 1.61 m2 04/11/2011 BP Systolic Sitting Left Arm 125 mmHg BP Diastolic Sitting Left Arm 82 mmHg Body Temperature 97.7 F Heart Rate 70 /min Height 66.25 inches 5'6.25" Weight 121.00 lb BMI (Body Mass Index) 19.4 kg/m2 09/06/2010 BP Systolic Sitting Left Arm 122 mmHg BP Diastolic Sitting Left Arm 80 mmHg Heart Rate 76 /min Height 66.25 inches 5'6.25" Weight 128.00 lb BMI (Body Mass Index) 20.5 kg/m2 Results Test Date Test Result H/L Range Note Protime 09/17/2017 Protime 13.6 seconds 12.0-14.4 1 Inr 1.0 0.9-1.1 1, 2 Laboratory test 09/17/2017 Act Partial Thrombo 31.4 seconds 23.4-35.0 1 , 3 finding Time Basic Metabolic Panel 08/15/2017 Glucose 155 mg/dL High 74-106 4 BUN 16 mg/dL 7-18 4 Creatinine 0.4 mg/dL Low 0.6-1.3 4 Glom Filtration Rate, Estimate >60 mL/min >60 4 If >60 mL/min >60 4, 5 BUN/Creat 40.0 ratio 4 Sodium 147 mmol/L High 136-145 4 Potassium 4.0 mmol/L 3.5-5.1 4 Chloride 111 mmol/L High 98-107 4 Carbon Dioxide 27 mmol/L 21-32 4 Anion Gap 9 mEq/L 8-16 4 Calcium 8.0 mg/dL Low 8.5-10.1 4 Continuous Oximetry 08/15/2017 Oximetry 91 % Low 93-98 4 Fio2 21 21-100 4 O2l/Min 0 L/min 4 Heart Rate 98 BPM 4 Patient Status AMBULATING 4 Continuous Oximetry 08/15/2017 Oximetry 95 % 93-98 4 Fio2 21 21-100 4 O2l/Min 0 L/min 4 Heart Rate 85 BPM 4 Patient Status RESTING 4 Patient Position SITTING UP IN BE <SEE NOTE> 4, 6 CBC 08/15/2017 White Blood Count 12.0 K/uL High 3.1-10.7 4 Red Blood Count 3.61 M/uL Low 3.90-5.40 4 Hemoglobin 12.2 gm/dL 11.6-15.8 4 Hematocrit 36.7 % 36.0-46.1 4 Mean Cell Volume 101.7 fl High 80.9-99.0 4 Mean Corpuscular HGB 33.8 pg High 25.9-32.7 4 Mean Corpuscular HGB Conc 33.2 g/dL 30.8-34.3 4 Platelet Count 263 K/uL 155-360 4 Red Cell Distri Width %CV 13.8 % 11.7-14.4 4 Mean Platelet Volume 10.1 fL 8.9-12.4 4 Laboratory test 08/14/2017 Troponin-I < 0.015 ng/mL 4, 7 finding CBC 08/14/2017 White Blood Count 14.4 K/uL High 3.1-10.7 4 Red Blood Count 3.70 M/uL Low 3.90-5.40 4 Hemoglobin 12.6 gm/dL 11.6-15.8 4 Hematocrit 37.4 % 36.0-46.1 4 Mean Cell Volume 101.1 fl High 80.9-99.0 4 Mean Corpuscular HGB 34.1 pg High 25.9-32.7 4 Mean Corpuscular HGB Conc 33.7 g/dL 30.8-34.3 4 Platelet Count 262 K/uL 155-360 4 Red Cell Distri Width %CV 13.7 % 11.7-14.4 4 Mean Platelet Volume 9.9 fL 8.9-12.4 4 Basic Metabolic Panel 08/14/2017 Glucose 139 mg/dL High 74-106 4 BUN 14 mg/dL 7-18 4 Creatinine 0.5 mg/dL Low 0.6-1.3 4 Glom Filtration Rate, Estimate >60 mL/min >60 4 If >60 mL/min >60 4, 8 BUN/Creat 28.0 ratio 4 Sodium 146 mmol/L High 136-145 4 Potassium 3.8 mmol/L 3.5-5.1 4 Chloride 111 mmol/L High 98-107 4 Carbon Dioxide 27 mmol/L 21-32 4 Anion Gap 8 mEq/L 8-16 4 Calcium 8.1 mg/dL Low 8.5-10.1 4 Respiratory Culture W/Gram St 08/13/2017 Gram Stain <10 SQUAMOUS EPI 4, 9 <SEE NOTE> Gram Stain <25 WBC/LPF 4 Gram Stain RARE GRAM POSITI <SEE NOTE> 4, 10 Gram Stain RARE YEAST LIKE <SEE NOTE> 4, 11 CBS W/Automated Diff 08/13/2017 White Blood Count 3.5 K/uL 3.1-10.7 12 Red Blood Count 4.08 M/uL 3.90-5.40 12 Hemoglobin 13.8 gm/dL 11.6-15.8 12, 13 Hematocrit 40.6 % 36.0-46.1 12, 14 Mean Cell Volume 99.5 fl High 80.9-99.0 12 Mean Corpuscular HGB 33.8 pg High 25.9-32.7 12 Mean Corpuscular HGB Conc 34.0 g/dL 30.8-34.3 12 Platelet Count 224 K/uL 155-360 12 Red Cell Distri Width SD 48.2 fl High 3-47 12 Red Cell Distri Width %CV 13.6 % 11.7-14.4 12 Mean Platelet Volume 9.8 fL 8.9-12.4 12 Neut% 66.1 % 40.4-72.8 12 Lymph % 29.9 % 20.0-42.0 12 [place] % 3.4 % Low 4.3-13.2 12 Eo% 0.0 % 0.0-6.6 12 Bas% 0.6 % 0.0-1.1 12 Neut# 2.30 K/uL 1.8-7.0 12 Lymph # 1.04 K/uL 1.0-4.0 12 [place] # 0.12 K/uL Low 0.3-0.9 12 Eos # 0.00 K/uL 0.0-0.5 12 Baso # 0.02 K/uL 0.0-0.1 12 Basic Metabolic Panel 08/13/2017 Glucose 146 mg/dL High 74-106 12 BUN 13 mg/dL 7-18 12 Creatinine 0.4 mg/dL Low 0.6-1.3 12 Glom Filtration Rate, Estimate >60 mL/min >60 12 If >60 mL/min >60 12, 15 BUN/Creat 32.5 ratio 12 Sodium 145 mmol/L 136-145 12 Potassium 3.6 mmol/L 3.5-5.1 12 Chloride 113 mmol/L High 98-107 12 Carbon Dioxide 24 mmol/L 21-32 12 Anion Gap 8 mEq/L 8-16 12 Calcium 7.8 mg/dL Low 8.5-10.1 12 Laboratory test 08/12/2017 Lactic Acid 1.1 mmol/L 0.4-1.9 12 finding Laboratory test 08/12/2017 D-Dimer, Quantitative 1.02 ug/mL High 16, 17 finding CBS W/Automated Diff 08/12/2017 White Blood Count 6.4 K/uL 3.1-10.7 16 Red Blood Count 5.11 M/uL 3.90-5.40 16 Hemoglobin 17.2 gm/dL High 11.6-15.8 16 Hematocrit 50.0 % High 36.0-46.1 16 Mean Cell Volume 97.8 fl 80.9-99.0 16 Mean Corpuscular HGB 33.7 pg High 25.9-32.7 16 Mean Corpuscular HGB Conc 34.4 g/dL High 30.8-34.3 16 Platelet Count 214 K/uL 155-360 16 Red Cell Distri Width SD 48.3 fl High 3-47 16 Red Cell Distri Width %CV 13.8 % 11.7-14.4 16 Mean Platelet Volume 9.3 fL 8.9-12.4 16 Neut% 51.6 % 40.4-72.8 16 Lymph % 26.2 % 20.0-42.0 16 [place] % 17.9 % High 4.3-13.2 16 Eo% 2.6 % 0.0-6.6 16 Bas% 1.7 % High 0.0-1.1 16 Neut# 3.32 K/uL 1.8-7.0 16 Lymph # 1.69 K/uL 1.0-4.0 16 [place] # 1.15 K/uL High 0.3-0.9 16 Eos # 0.17 K/uL 0.0-0.5 16 Baso # 0.11 K/uL High 0.0-0.1 16 Laboratory test finding 08/12/2017 Lipase 197 U/L 56-289 16 CK 90 U/L 26-192 16 Troponin-I < 0.015 ng/mL 16, 18 Comprehensive Metabolic Panel 08/12/2017 Glucose 119 mg/dL High 74-106 16 BUN 20 mg/dL High 7-18 16 Creatinine 0.7 mg/dL 0.6-1.3 16 Glom Filtration Rate, Estimate >60 mL/min >60 16 If >60 mL/min >60 16, 19 BUN/Creat 28.5 ratio 16 Sodium 140 mmol/L 136-145 16 Potassium 3.5 mmol/L 3.5-5.1 16 Chloride 102 mmol/L 98-107 16 Carbon Dioxide 27 mmol/L 21-32 16 Anion Gap 11 mEq/L 8-16 16 Calcium 8.8 mg/dL 8.5-10.1 16 Total Protein 6.5 g/dL 6.4-8.2 16 Albumin 3.4 g/dL 3.4-5.0 16 Globulin 3.1 g/dL 1.9-4.3 16 Alb/Glob 1.1 ratio 16 Bilirubin,Total 0.5 mg/dL 0.2-1.0 16 Sgot/Ast 36 U/L 15-37 16 SGPT/Alt 50 U/L 12-78 16 Alkaline Phosphatase 118 U/L High 45-117 16 Urine Culture 08/12/2017 Urine Culture URETHRAL NED 16 Quantity 10,000 - 50,000 <SEE NOTE> 16, 20 Ua RFX Micro & Culture II 08/12/2017 Urine Color YELLOW Yellow 16 Urine Clarity CLEAR Clear 16 Urine Glucose - Dipstick NEGATIVE mg/dL Negative 16 Urine Bilirubin - Dipstick NEGATIVE Negative 16 Urine Ketone NEGATIVE mg/dL Negative 16 Urine Specific [place] 1.010 1.010-1.030 16 Urine Blood TRACE Negative 16 Urine PH 5.5 Low 6.5-7.5 16 Urine Protein - Dipstick NEGATIVE mg/dL Negative 16 Urine Urobilinogen - Dipstick 0.2 E.U./dL 0.2-1.0 16 Urine Nitrite - Dipstick NEGATIVE Negative 16 Urine Leuk Esterase SMALL Negative 16 Urine RBC 0-2 rbc/hpf 0-2 16 Urine WBC 5-10 wbc/hpf 0-7 16 Urine Epithelial Cells VERY FEW /lpf None Seen 16 Urine Bacteria MODERATE None Seen 16 Urine Mucus SMALL None Seen 16 Source: URINE, CLEAN CAT <SEE 16, 21 NOTE> Blood Culture 08/12/2017 Blood Culture Aerobic NO GROWTH: FINAL <SEE 22, 23 NOTE> Blood Culture Anaerobic NO GROWTH: FINAL <SEE NOTE> , 24 Respiratory Culture W/Gram 08/12/2017 Gram Stain >10 SQUAMOUS EPI , 25 St <SEE NOTE> Gram Stain >25 WBC/LPF 22 Gram Stain MANY GRAM POSITI <SEE NOTE> , Gram Stain MANY GRAM POS BA <SEE NOTE> 22, 27 Respiratory Culture STAPHYLOCOCCUS A <SEE NOTE> , 28 Quantity MANY 22 Respiratory Culture ENTEROBACTER AER <SEE NOTE> , 29 Quantity MODERATE 22 Respiratory Culture RESPIRATORY BRIEN <SEE NOTE> , 30 Quantity MANY 22 Staphylococcus Aureus 08/12/2017 Penicillin G <=0.03 22 Oxacillin <=0.25 22 Tetracycline <=1 22 Trimethoprim/Sulfamethoxazole <=10 22 Gentamicin <=0.5 22 Erythromycin >=8 22 Clindamycin <=0.25 22, 31 Ciprofloxacin <=0.5 22 Moxifloxacin <=0.25 22 Levofloxacin <=0.12 22 Vancomycin <=0.5 22 Enterobacter Aerogenes 08/12/2017 Trimethoprim/Sulfamethoxazole <=20 22 Cefazolin <=4 22 Ciprofloxacin <=0.25 22 Piperacillin/Tazobactam <=4 22 Ceftazidime <=1 22 Ceftriaxone <=1 22 Cefepime <=1 22 Levofloxacin <=0.12 22 Imipenem <=0.25 22 Gentamicin <=1 22 Tobramycin <=1 22 Laboratory test 08/12/2017 Legionella Urinary Negative Negative 32, 33 finding Antigen Blood Culture 08/12/2017 Blood Culture NO GROWTH: FINAL 32, 34 Aerobic <SEE NOTE> Blood Culture Anaerobic NO GROWTH: FINAL <SEE NOTE> 32, 35 Legionella Culture 08/12/2017 Legionella Culture No Legionella sp 36, 37 <SEE NOTE> Lactic Acid 08/12/2017 Lactic Acid 2.4 mmol/L High 0.4-1.9 38 Lab Reflex >2.0 for Sepsis? Y 38 HCV Cele Qual Reflex Stefanie 04/02/2017 HCV Rna Cele QL Negative Negative 39 , 40 LDL Cholesterol Profile 04/02/2017 Cholesterol 196 mg/dL <200 39, 41 Triglycerides 82 mg/dL <150 39, 42 HDL Cholesterol 75 mg/dL >40 39, 43 LDL-Cholesterol 105 mg/dL < 100 39, 44 Laboratory test finding 04/02/2017 Thyroid Stim Hormone 1.95 uIU/mL 0.30- 4.20 39 LDL Cholesterol Profile 03/20/2016 Cholesterol 183 mg/dL <200 45 Triglycerides 78 mg/dL <150 46 HDL Cholesterol 64 mg/dL >40 47 LDL-Cholesterol 103 mg/dL < 100 48 CBC W/Automated Diff 03/20/2016 White Blood Count 7.7 K/uL 3.1-10.7 Red Blood Count 4.51 M/uL 3.90-5.40 Hemoglobin 15.4 gm/dL 11.6-15.8 Hematocrit 46.7 % High 36.0-46.1 Mean Cell Volume 103.5 fl High 80.9-99.0 Mean Corpuscular HGB 34.1 pg High 25.9-32.7 Mean Corpuscular HGB Conc 33.0 g/dL 30.8-34.3 Platelet Count 299 K/uL 155-360 Red Cell Distri Width SD 56.8 fl High 3-47 Red Cell Distri Width %CV 15.4 % High 11.7-14.4 Mean Platelet Volume 9.8 fL 8.9-12.4 Neut% 66.8 % 40.4-72.8 Lymph % 21.6 % 17.0-46.1 [place] % 9.2 % 4.3-13.2 Eo% 2.1 % 0.0-6.6 Bas% 0.3 % 0.0-1.1 Neut# 5.18 K/uL 1.8-7.0 Lymph # 1.67 K/uL Low 1.8-7.0 [place] # 0.71 K/uL 0.3-0.9 Eos # 0.16 K/uL 0.0-0.5 Baso # 0.02 K/uL 0.0-0.1 Comprehensive Metabolic Panel 03/20/2016 Glucose 94 mg/dL 74-106 BUN 10 mg/dL 7-18 Creatinine 0.8 mg/dL 0.6-1.3 Glom Filtration Rate, Estimate >60 mL/min >60 If >60 mL/min >60 49 BUN/Creat 12.5 ratio Sodium 141 mmol/L 136-145 Potassium 3.9 mmol/L 3.5-5.1 Chloride 108 mmol/L High 98-107 Carbon Dioxide 27 mmol/L 21-32 Anion Gap 6 mEq/L Low 8-16 Calcium 8.6 mg/dL 8.5-10.1 Total Protein 7.7 g/dL 6.4-8.2 Albumin 4.2 g/dL 3.4-5.0 Globulin 3.5 g/dL 1.9-4.3 Alb/Glob 1.2 ratio Bilirubin,Total 0.3 mg/dL 0.2-1.0 Sgot/Ast 34 U/L 15-37 SGPT/Alt 80 U/L High 12-78 Alkaline Phosphatase 136 U/L High 45-117 Laboratory test finding 03/20/2016 Sedimentation Rate 1 mm/hr 0-30 Thyroid Stim Hormone 2.43 uIU/mL 0.30-4.20 Vitamin B12 And Folate 03/20/2016 Vitamin B12 426 pg/mL 193-986 Folic Acid 9.9 ng/mL 3.1-17.5 Laboratory test finding 2010 Breast Biopsy - Permanent Only See Note 50 1 LUNG NODULE 2 THERAPEUTIC INR RANGE: 2.0 - 3.0 DVT, Pulmonary embolus, prophylaxis against venous thrombosis or systemic embolization in high risk patients. 2.5 - 3.5 Mechanical heart valves 3 Comments to assistant corporation counsel: PLEASE CALL TO [phone] Is patient on heparin protocol? N Is patient on anticoagulants? Other 4 COPD, LUNG MASS 5 Note: Persistent reduction for 3 months or more in an eGFR <60 mL/min/1.73 m2 defines CKD. Patients with eGFR values >/=60 mL/min/1.73 m2 may also have CKD if evidence of persistent proteinuria is present. The original MDRD equation for estimated GFR is not valid for patients less than 18 years of age. Additional information may be found at [email or web address]. 6 SITTING UP IN BED 7 0.0 - 0.045 ng/mL: Normal 0.046 - 0.5 ng/mL: Suggestive 0.6 - 1.5 ng/mL: Consistent 8 Note: Persistent reduction for 3 months or more in an eGFR <60 mL/min/1.73 m2 defines CKD. Patients with eGFR values >/=60 mL/min/1.73 m2 may also have CKD if evidence of persistent proteinuria is present. The original MDRD equation for estimated GFR is not valid for patients less than 18 years of age. Additional information may be found at [email or web address]. 9 <10 SQUAMOUS EPITHELIAL CELLS/LPF 10 RARE GRAM POSITIVE COCCI 11 RARE YEAST LIKE ORGANISMS SPECIMEN IS A MIX OF ORGANISMS INDICITAVE OF CONTAMINATION DURING COLLECTION. SUGGEST REPEAT SPECIMEN IF CLINICALLY INDICATED. 12 COPD,LUNG MASS 13 Result confirmed by repeat analysis. 14 Result confirmed by repeat analysis. 15 Note: Persistent reduction for 3 months or more in an eGFR <60 mL/min/1.73 m2 defines CKD. Patients with eGFR values >/=60 mL/min/1.73 m2 may also have CKD if evidence of persistent proteinuria is present. The original MDRD equation for estimated GFR is not valid for patients less than 18 years of age. Additional information may be found at [email or web address]. [address]J COULTER, LOW O2 SATS, PNEUMONIA? 17 Result confirmed by repeat analysis. <=0.49 ug/mL - Low likelihood of DIC, DVT or Pulmonary Embolism >0.49 ug/mL - Additional testing should be done to rule out DIC, DVT, or Pulmonary embolism as clinically indicated. ([facility] has established a 97.89% negative predictive value for thrombotic disease when a cutoff value of 0.5 ug/mL is used.) 18 0.0 - 0.045 ng/mL: Normal 0.046 - 0.5 ng/mL: Suggestive 0.6 - 1.5 ng/mL: Consistent 19 Note: Persistent reduction for 3 months or more in an eGFR <60 mL/min/1.73 m2 defines CKD. Patients with eGFR values >/=60 mL/min/1.73 m2 may also have CKD if evidence of persistent proteinuria is present. The original MDRD equation for estimated GFR is not valid for patients less than 18 years of age. Additional information may be found at [email or web address]. 20 10,000 - 50,000 CFU/mL 21 URINE, CLEAN CATCH 22 COPD, LUNG MASS 23 NO GROWTH: FINAL REPORT 24 NO GROWTH: FINAL REPORT 25 >10 SQUAMOUS EPITHELIAL CELLS/LPF 26 MANY GRAM POSITIVE COCCI 27 MANY GRAM POS BACILLI SUGGESTIVE OF DIPTHEROIDS 28 STAPHYLOCOCCUS AUREUS 29 ENTEROBACTER AEROGENES 30 RESPIRATORY NED 31 This isolate is presumed to be resistant to Clindamycin on the basis of detection of inducible Clindamycin resistance. Clindamycin still might be effective clinically in some cases. [address]J COULTER, LOW O2 SATS, PNEUMONIA? 33 Presumptive negative for L. pneumophila serogroup 1 antigen in urine, suggesting no recent or current infection. Legionnaires' disease cannot be ruled out since other serogroups and species may also cause disease. 34 NO GROWTH: FINAL REPORT 35 NO GROWTH: FINAL REPORT 36 COPD, LUNG MASS 37 No Legionella species isolated. Performed at: - [facility] [id number] Chucking And Boring Machine Operator: Jacki Rainey MD, Phone: [phone] [address]J COULTER, LOW O2 SATS, PNEUMONIA? 39 E04.1 E78.5 Z00.00 Z11.59 40 Negative: HCV RNA Not Detected Performed at: - [facility] [id number] [employer] Machine Operator: Jcarlos Valencia MD, Phone: [phone] 41 Reference Guidelines*: Desirable: ........... < 200 mg/dL Borderline High: ..... 200-239 mg/dL High: ................ >=240 mg/dL * The National Cholesterol Education Program (NCEP) 42 Reference Guidelines*: Normal: ............. < 150 mg/dL Borderline High: .... 150-199 mg/dL High: ............... 200-499 mg/dL Very High: .......... > 500 mg/dL * Source: National Cholesterol Education Program (NCEP) 43 Reference Guidelines*: Low HDL: ..... < 40 mg/dL Normal: ..... 40-60 mg/dL Desirable: ... > 60 mg/dL *The National Cholesterol Education Program(NCEP) 44 Reference Guidelines*: Optimal:........... <100 mg/dL Near Optimal....... 100-129 mg/dL Borderline High.... 130-159 mg/dL High............... 160-189 mg/dL Very High.......... >=190 mg/dL * Source: National Cholesterol Education Program (NCEP) 45 Reference Guidelines*: Desirable: ........... < 200 mg/dL Borderline High: ..... 200-239 mg/dL High: ................ >=240 mg/dL * The National Cholesterol Education Program (NCEP) 46 Result confirmed by repeat analysis. Reference Guidelines*: Normal: ............. < 150 mg/dL Borderline High: .... 150-199 mg/dL High: ............... 200-499 mg/dL Very High: .......... > 500 mg/dL * Source: National Cholesterol Education Program (NCEP) 47 Reference Guidelines*: Low HDL: ..... < 40 mg/dL Normal: ..... 40-60 mg/dL Desirable: ... > 60 mg/dL *The National Cholesterol Education Program(NCEP) 48 Reference Guidelines*: Optimal:........... <100 mg/dL Near Optimal....... 100-129 mg/dL Borderline High.... 130-159 mg/dL High............... 160-189 mg/dL Very High.......... >=190 mg/dL * Source: National Cholesterol Education Program (NCEP) 49 Note: Persistent reduction for 3 months or more in an eGFR <60 mL/min/1.73 m2 defines CKD. Patients with eGFR values >/=60 mL/min/1.73 m2 may also have CKD if evidence of persistent proteinuria is present. The original MDRD equation for estimated GFR is not valid for patients less than 18 years of age. Additional information may be found at www.kdoqi.org. 50 OPERATION/PROCEDURE US guided right breast DIAGNOSIS: "RIGHT BREAST, STEREOTACTIC NEEDLE CORE BIOPSY": FLORID DUCTAL HYPERPLASIA, RELATIVELY SMALL FOCUS. STROMAL FIBROSIS, BENIGN NO EVIDENCE OF NEOPLASIA. WYS/clf GROSS "RIGHT BREAST BIOPSY". The specimen is received in an appropriately labeled container. This contains four cores of pink-white soft tissue. The shortest measures 0.5 x 0.3 x 0.2 cm., the longest is 1.4 x 0.3 x 0.2 cm.; submitted in toto within a single cassette. WS/clf MICROSCOPIC Multiple sections of the core biopsy are examined. No infiltrating neoplasm is seen. One area of microcalcification is within an expansion of one of the ducts by NON-atypical appearing epithelial cell population characterized by slight distension, short angular slit-like openings and oriented cells with the presence of myoepithelial cells. The sections also demonstrate the presence of irregular stromal fibrosis without significant cellularity. I do not perceive the presence of abnormal epithelial elements which could be construed as neoplasia. PRE OPERATIVE DIAGNOSIS Palpable lump @ 11:00 (solid area nodule) REVIEW CODE CODE: I JCARLOS Canela MD 09/12/10 Procedures Date CPT Code Description Status Comment 09/30/2017 90252 Pulse Oximetry Completed 04/02/2017 57960 Visual Screening Test Of Visual Completed Acuity, Quantitative, Bilateral 08/18/2016 Bone Mineral Density Test Completed 08/05/2016 Mammogram Completed 04/09/2016 44912 Bronchospasm Provocation Completed Evaluation Multi Spirometric Determinati 04/09/2016 11575 Spirometry Completed 08/04/2015 Mammogram Completed 06/18/2014 Mammogram Completed 07/27/2013 42638 Anesthesia, Vaginal Procedures Completed Not Otherwise Spec 07/21/2013 83562 EKG Interpretation And Report Completed Only 04/30/2012 Mammogram Completed 08/27/2010 Mammogram Completed 08/02/2010 13740 Anesthesia, Neck Organ Surgery Completed Not Otherwise Spec 1Yr Or Older 07/30/2010 17761 EKG Interpretation And Report Completed Only 09/18/2009 69189 EKG Interpretation And Report Completed Only 08/18/2009 Colonoscopy Completed polyps, prob. needs f/u this year 04/09/2007 Mammogram Completed 03/26/2007 Mammogram Completed 01/23/2006 Mammogram Completed Encounters Type Date Location Provider CPT E/M Dx Office Visit 10/08/2017 1:30[place] [address] J44.9 R91.1 F17.211 Office Visit 09/30/2017 8:30a Family Medicine BHAVESH Levy, COATER OPERATOR, 29553 B37.0 Ibclc Z23 Office Visit 09/03/2017 3:00p [place] [address] J44.9 R91.1 Z01.812 J18.9 F17.211 Office Visit 08/12/2017 2:00p Family Medicine BHAVESH Levy, 85137 R09.02 COATER OPERATOR, Ibclc M79.669 Office Visit 07/24/2017 4:00p Family Medicine LAKIA LevyBC, COATER OPERATOR, 88565 J06.9 Ibclc Office Visit 04/03/2017 3:45p [place] [address] J44.9 F17.210 Z71.6 Office Visit 04/02/2017 10:45a [place] [address] Z00.00 E78.5 M05.79 E04.1 J45.20 L29.9 F17.210 Z71.6 Z23 Office Visit 12/23/2016 1:00p Family Medicine LAKIA LevyBC, COATER OPERATOR, 59852 B37.0 Ibclc L29.9 Office Visit 10/09/2016 2:45p Family Medicine BHAVESH Levy, COATER OPERATOR, 14704 B37.3 Ibclc B37.0 Office Visit 09/26/2016 1:00p [place] [address] J01.10 L30.9 J45.30 F17.210 Office Visit 07/23/2016 4:00p [place] [address] J44.9 F17.210 Z71.6 Office Visit 04/02/2016 3:00p [place] [address] R06.02 F17.210 Z71.6 J43.9 Office Visit 03/20/2016 9:00a [place] [address] Z00.00 E78.5 M05.79 E04.1 F17.210 J45.30 Z71.6 Office Visit 09/20/2015 2:15p [place] [address] J45.20 M05.79 F17.210 Z71.6 Office Visit 04/11/2011 10:00a Surgical Office Alton Benavides M.D. 48622 793.89 Office Visit 09/20/2010 2:30p Surgical Office Alton Benavides M.D. 81889 V67.09 Office Visit 09/06/2010 10:30a Surgical Office Alton Benavides M.D. 84050 793.89 709.9 Plan of Care Future Appointment(s):04/07/2018 1:45 pm - Perez Mcgee MD at [facility]/21/ 2018 - Perez Mcgee MDJ44.9 Chronic obstructive pulmonary disease, unspecifiedNew Orders:SpirometryComments:Having a mild exacerbation. Advised to started prednisone. Continue with Spiriva Respimat, Advair 500/50, and as needed albuterol.Follow up:6 ncqykaD95.1 Solitary pulmonary noduleComments: Resolved, biopsy was cancelled.F17.211 Nicotine dependence, cigarettes, in remissionComments:About 12 pack year smoking history, quit 07/2017.AllNew Medication:Prednisone 50 mgFluconazole 200 mg
[2017-11-19 09:20] VITALS: BP 133/81
--- NOTE | 2017-11-19 10:04 | UC ---
Respiratory Complaint HPI - HPI Summary HPI Summary: Cough, congestion, sinus pressure for a few days. No known fever. There is green production but no hemoptysis. She has hx of RA on methotrexate and asthma. Former smoker. She denies Cp or sob at rest. - History of Current Complaint Chief Complaint: UCRespiratory Stated Complaint: SINUS, CONGESTION Time Seen by Provider: 11/19/17 09:47 Hx Obtained From: Patient, Family/Special Makeup Fx Artist Instructor ?: No Onset/Duration: Gradual Onset, Lasting Days Timing: Constant Severity Initially: Moderate Severity Currently: Moderate Pain Intensity: 8 Character: Cough: Productive Aggravating Factors: Deep Breaths, Recumbent Position Alleviating Factors: Upright Position, Spontaneous Resolution Associated Signs And Symptoms: Positive: URI, Nasal Congestion. Negative: Fever - Allergies/Home Medications Allergies/Adverse Reactions: Allergies Allergy/AdvReac Type Severity Reaction Status Date / Time hepatitis B virus vaccine Allergy Rash Verified 11/19/17 09:12 nitrofurantoin Allergy Vomiting Verified 11/19/17 09:12 OTHER MEDS , UNKNOW NAMES AdvReac Unknown Unknown Uncoded 02/02/17 09:09 Reaction Details Home Medications: Home Medications Fluticasone-Salmeterol 500-50* [Advair Diskus 500-50*] 1 puff INH BID 11/19/17 [ History Confirmed 11/19/17] PMH/Surg Hx/FS Hx/Imm Hx Previously Healthy: No - asthma, rheumatoid arthritis (RA) - Surgical History Surgical History: Yes Surgery Procedure, Year, and Place: D&C. PLACIDO THYROID. DEVIATED SEPTUM R EPAIR. NECK LYMPH NODE EXCISION. C- SECTION - Family History Known Family History: Positive: None, Cardiac Disease, Hypertension - Social History Alcohol Use: Occasionally Substance Use Type: None Smoking Status (MU): Former Smoker Type: Cigarettes Amount Used/How Often: 1 PPD When Did the Patient Quit Smoking/Using Tobacco: 04/18/17 Household Exposure Type: Cigarettes - Immunization History Most Recent Influenza Vaccination: "not yet" 2017 Review of Systems ENT: Sinus Congestion Respiratory: Cough Is Patient Immunocompromised?: Yes All Other Systems Reviewed And Are Negative: Yes Physical Exam Triage Information Reviewed: Yes Appearance: Well-Appearing - Non toxic but sounds congested., No Pain Distress, Well-Nourished Vital Signs: Initial Vital Signs Temp 100 F 04/04/18 09:12 Pulse 102 11/19/17 09:12 Resp 18 11/19/17 09:12 BP 133/81 11/19/17 09:12 Pulse Ox 97 11/19/17 09:12 Vital Signs Reviewed: Yes Eyes: Positive: Conjunctiva Clear ENT Exam: Normal ENT: Positive: Pharynx normal, TMs normal, Sinus tenderness, Uvula midline. Negative: Trismus, Muffled voice Neck: Positive: Supple, Nontender, No Lymphadenopathy Respiratory: Positive: Lungs clear, Normal breath sounds, No respiratory distress, No accessory muscle use. Negative: Respiratory distress, Decreased breath sounds, Accessory muscle use, Crackles, Rhonchi, Stridor, Wheezing Cardiovascular: Positive: No Murmur, Pulses Normal, Brisk Capillary Refill Abdomen Description: Positive: Soft. Negative: Distended, Guarding Musculoskeletal: Positive: Strength Intact, ROM Intact, No Edema Neurological: Positive: Alert, Muscle Tone Normal. Negative: Fatigued Psychological: Positive: Age Appropriate Behavior Skin: Negative: rashes UC Diagnostic Evaluation - Laboratory O2 Sat by Pulse Oximetry: 97 Respiratory Course/Dx - Course Course Of Treatment: Low grade fever at 100.0 here. Otherwise lung exam is completely benign with good air movement and clinical signs of pneumonia. She has muscle aches. flu swab obtained. She agrees to return for any worsening symptoms. Mother is present for conversation. - Differential Dx/Diagnosis Provider Diagnoses: sinusitis. acute asthma exacerbation Discharge - Sign-Out/Discharge Documenting (check all that apply): Discharge - Discharge Plan Condition: Good Disposition: HOME Prescriptions: DOXYcycline CAP(*) [DOXYcycline 100MG CAP(*)] 100 mg PO BID #20 cap predniSONE TAB* [Deltasone TAB*] 20 mg PO DAILY #15 tab Patient Education Materials: Sinusitis (ED) Referrals: Angy Coulter MD [Primary Care Provider] - Additional Instructions: Start nasal irrigation and decongestants. REturn here as we discussed for any worsening symptoms. - Billing Disposition and Condition Condition: GOOD Disposition: HOME
== END 2017-11-19 10:25 | disposition home or self-care (01) ==
LOC: UCCORT 08:56
DX: J45.901 Unspecified asthma with (acute) exacerbation (principal); J32.9 Chronic sinusitis, unspecified; Z87.891 Personal history of nicotine dependence; Z88.7 Allergy status to serum and vaccine; Z88.8 Allergy status to other drugs, medicaments and biological substances
CPT/HCPCS: 87502; 99212; G0463

== ENCOUNTER 2018-06-15 08:33 | Emergency (ER) | payer BC ==
[2018-06-15 09:02] VITALS: BP 131/72
--- NOTE | 2018-06-15 09:12 | ED ---
Adult Trauma - HPI Summary HPI Summary: 57 yr old female with the complaint of left wrist, hand, ankle and foot pain, and left side pelvis pain after falling on floor last evening when turning and foot didn't go the way she wanted. Pain is moderate. She has RA, and Osteoporosis. She has swelling to the left wrist. Denies LOC, head injury, neck pain, Chest or abdominal or spine pain. - History of Current Complaint Chief Complaint: UCLowerExtremity Stated Complaint: L FOOT/L WRIST INJ Time Seen by Provider: 06/15/18 08:55 Pain Intensity: 8 - Allergy/Home Medications Allergies/Adverse Reactions: Allergies Allergy/AdvReac Type Severity Reaction Status Date / Time hepatitis B virus vaccine Allergy Rash Verified 06/15/18 08:52 nitrofurantoin Allergy Vomiting Verified 06/15/18 08:52 Home Medications: Home Medications Naproxen [Naproxen 500 mg tab] 500 mg PO BID PRN 06/15/18 [History Confirmed ] PMH/Surg Hx/FS Hx/Imm Hx Respiratory History: Reports: Hx Asthma, Hx Chronic Obstructive Pulmonary Disease (COPD) - Surgical History Surgery Procedure, Year, and Place: D&C. PLACIDO THYROID. DEVIATED SEPTUM R EPAIR. NECK LYMPH NODE EXCISION. C- SECTION Infectious Disease History: No Infectious Disease History: Denies: Traveled Outside the [place] in Last 30 Days - Family History Known Family History: Positive: None, Cardiac Disease, Hypertension - Social History Alcohol Use: Occasionally Substance Use Type: Reports: None Smoking Status (MU): Heavy Every Day Tobacco Smoker Type: Cigarettes Amount Used/How Often: 1 PPD Review of Systems Constitutional: Negative Positive: Other - left ankle, foot, wrist, hand, pelvis pain All Other Systems Reviewed And Are Negative: Yes Physical Exam Triage Information Reviewed: Yes Vital Signs On Initial Exam: Initial Vitals Temp Pulse Resp BP Pulse Ox 97.4 F 89 15 131/72 100 06/15/18 08:52 06/15/18 08:52 06/15/18 08:52 06/15/18 08:52 06/15/18 08:52 Vital Signs Reviewed: Yes Appearance: Positive: Well-Appearing, No Pain Distress Head/Face: Positive: Normal Head/Face Inspection Eyes: Positive: EOMI, ARGELIA ENT: Positive: Normal ENT inspection, Pharynx normal Neck: Positive: Nontender Respiratory/Lung Sounds: Positive: Clear to Auscultation, Breath Sounds Present Cardiovascular: Positive: RRR. Negative: Murmur Abdomen Description: Positive: Nontender Musculoskeletal: Positive: Strength/ROM Intact, Other - STS over the distal radius left wrist with STS, and over the 1st metacarpal bone left hand. Tender over left lateral malleolus, and lateral left foot. Tender over left marquita eof pelvis. Neurological: Positive: Sensory/Motor Intact, Alert, Oriented to Person Place, Time, CN Intact II-III Psychiatric: Positive: Normal - Sea Coma Scale Best Eye Response: 4 - Spontaneous Best Motor Response: 6 - Obeys Commands Best Verbal Response: 5 - Oriented Coma Scale Total: 15 Procedures - Splinting Left Upper Extremity Location: Left forearm, wrist, hand Hand-Made Type: orthoglass Splint: volar Pre-Proc Neuro Vasc Exam: normal Post-Proc Neuro Vasc Exam: normal Left Lower Extremity Location: left leg, ankle, foot Hand-Made Type: orthoglass Splint: posterior walking Pre-Proc Neuro Vasc Exam: normal Post-Proc Neuro Vasc Exam: normal Diagnostics - Vital Signs Vital Signs Temp Pulse Resp BP Pulse Ox 06/15/18 08:52 97.4 F 89 15 131/72 100 - Laboratory Lab Statement: Any lab studies that have been ordered have been reviewed, and results considered in the medical decision making process. Adult Trauma Course/Dx - Course Course Of Treatment: 57 yr old with wrist and foot fractures. Splints applied to upper and lower extremity by me. DC home. Wheelchair script, and follow up with Ortho. - Diagnoses Provider Diagnoses: Fracture, foot, Wrist fracture, left, Displaced fracture Discharge - Sign-Out/Discharge Documenting (check all that apply): Patient Departure All imaging exams completed and their final reports reviewed: Yes - Discharge Plan Condition: Good Disposition: HOME Patient Education Materials: Wrist Fracture in Adults (ED), Foot Fracture in Children (ED), Splint Care (ED) Referrals: Angy Coulter MD [Primary Care Provider] - 1 Day Shelton Madrigal MD [Medical Doctor] - 1 Day - Billing Disposition and Condition Condition: GOOD Disposition: Home
--- NOTE | 2018-06-15 09:47 | RAD ---
Indication: Pelvic pain post fall. Comparison: No relevant prior exams available on the [facility] [place] for comparison. Technique: Supine AP pelvis. Report: No pelvic fracture or joint diastases evident. Mild osteoarthritis noted at the bilateral hips. Unremarkable soft tissue contours. IMPRESSION: #. No radiographic evidence for pelvic fracture.
--- NOTE | 2018-06-15 09:51 | RAD ---
INDICATION: Left ankle injury. TECHNIQUE: 3 views of the left ankle were obtained. FINDINGS: There is lateral soft tissue swelling. The bones appear osteopenic and in normal alignment. No fracture is seen. Joint spaces appear maintained. IMPRESSION: SOFT TISSUE SWELLING, NO FRACTURE IS SEEN.
--- NOTE | 2018-06-15 09:53 | RAD ---
INDICATION: Left foot injury. TECHNIQUE: 3 views of the left foot were obtained. FINDINGS: There is lateral soft tissue swelling. The bones are osteopenic. There is an oblique fracture through the distal diaphysis of the fifth metatarsal. The distal fragment is displaced slightly one cortical diameter medial relative to the proximal fragment. No other fractures are seen. Joint spaces appear maintained. IMPRESSION: OBLIQUE SLIGHTLY DISPLACED FRACTURE OF THE FIFTH METATARSAL.
--- NOTE | 2018-06-15 09:55 | RAD ---
INDICATION: LEFT hand pain post fall. COMPARISON: No relevant prior exams available on the [facility] PACS for comparison. TECHNIQUE: AP, lateral, and oblique views LEFT hand. Wrist included in the [id number]. REPORT: Mildly comminuted and impacted distal metaphyseal through distal intra-articular fracture of the radius with disproportionate dorsal impaction and resulting loss of the normal volar tilt of the distal radial articular surface. No fracture of the ulna or additional fracture at the wrist or hand evident. Bone density appears decreased throughout. Negative for dislocation. Soft tissue swelling about the distal forearm and wrist. IMPRESSION: #. Mildly comminuted and impacted distal metaphyseal through distal intra-articular fracture of the radius with disproportionate dorsal impaction and resulting loss of the normal volar tilt of the distal radial articular surface.
== END 2018-06-15 11:10 | disposition home or self-care (01) ==
LOC: UCCORT 08:33
DX: S52.572A Other intraarticular fracture of lower end of left radius, initial encounter for closed fracture (principal); S92.352A Displaced fracture of fifth metatarsal bone, left foot, initial encounter for closed fracture; W18.30XA Fall on same level, unspecified, initial encounter; Y92.9 Unspecified place or not applicable; R10.2 Pelvic and perineal pain; M25.572 Pain in left ankle and joints of left foot; Z88.1 Allergy status to other antibiotic agents; Z88.7 Allergy status to serum and vaccine; F17.210 Nicotine dependence, cigarettes, uncomplicated
CPT/HCPCS: 72170; 99211; G0463

== ENCOUNTER 2018-09-10 10:22 | Emergency (ER) | payer BC ==
--- OUTSIDE RECORDS SUMMARY | 2018-09-10 10:37 | XMS REPORT | Continuity of Care Document ---
:1960 External Reference #:[id number] Author Name Jessica Martin Care Team Providers Name Role Phone Angy Coulter MD Primary Care Physician Unavailable Payers Type Date Identification Numbers Payment Provider Subscriber Policy Number: [id number] [employer] Jess Maya PayID: [id number] [address] [address] [place] [address] Advance Directives Description No Information Available Problems Description No Information Family History Date Family Member(s) Problem(s) Comments Father Bladder Cancer Father Hypertension Mother Hypertension Social History Type Date Description Comments Sex Unknown Marital Status Single Occupation Currently Working ETOH Use Currently consumes alcohol socially Tobacco Use Start: Unknown Heavy tobacco smoker (more than 10 cigarettes/day) Recreational Drug Use Denies Drug Use Smoking Status Reviewed: 09/03/18 Heavy tobacco smoker (more than 10 cigarettes/day) Allergies, Adverse Reactions, Alerts Date Description Reaction Status Severity Comments 06/15/2018 Macrodantin Active 09/03/2018 Hepatitis B Vaccine Swelling and redness of arm Active Medications Medication Date Status Form Strength Qnty SIG Indications Ordering Provider Naproxen DR / Active Tablets DR 500mg 1 by mouth Unknown 0000 twice a day Albuterol / Active Nebulizer (2.5mg/3ML 1 vial via Unknown Sulfate 0000 ) 0.083% nebulizer 4 times daily as needed Acyclovir / Active Tablets 400mg take 1/2 Unknown 0000 tablet by mouth twice a day prn Folic Acid / Active Tablets 1mg 1 by mouth Unknown 0000 every day Methotrexate 00// Active Tablets 2.5mg 4 tbs by Unknown 0000 mouth every week Spiriva / Active Aerosol 2.5mcg/Act 2 puffs Unknown Respimat 0000 every day Advair Diskus 00/ Active Aerosol 500-50mcg/ inhale one Unknown 0000 Dose dose by mouth twice daily Platform 06/15/ Hx left wrist S52.572A Shelton Mccormick (Has 2017 - and left Rohan, Left Short Arm 09/01/ foot Cast) 2019 fractures Immunizations Description No Information Available Vital Signs Date Vital Result Comment 09/03/2018 8:42am Height 67 inches 5'7" Weight 110.00 lb BP Systolic Sitting 120 mmHg BP Diastolic Sitting 64 mmHg Respiratory Rate 18 /min Pain Level 8 BMI (Body Mass Index) 17.2 kg/m2 08/03/2018 8:38am Height 67 inches 5'7" Weight 110.00 lb BP Systolic 112 mmHg BP Diastolic 64 mmHg Pain Level 8 Wrist. BMI (Body Mass Index) 17.2 kg/m2 07/06/2018 8:59am Height 67 inches 5'7" Weight 110.00 lb Heart Rate 60 /min BP Systolic Sitting 120 mmHg BP Diastolic Sitting 66 mmHg Respiratory Rate 16 /min Pain Level 6 BMI (Body Mass Index) 17.2 kg/m2 06/15/2018 11:44am Height 67 inches 5'7" Weight 110.00 lb BP Systolic Sitting 126 mmHg BP Diastolic Sitting 72 mmHg Respiratory Rate 16 /min Pain Level 7 BMI (Body Mass Index) 17.2 kg/m2 Results Description No Information Available Procedures Date Code Description Status 08/03/2018 76159 Rad Exam; Foot Comp Completed 08/03/2018 28858 Rad Exam; Wrist, Comp, Min 3 Views Completed 07/06/2018 23692 Rad Exam; Foot Comp Completed 07/06/2018 22784 Rad Exam; Wrist, Comp, Min 3 Views Completed 06/15/2018 75038 Short Arm Cast Application Completed Encounters Type Date Location Provider Dx Diagnosis Office Visit 08/03/2018 Orthopedic Shelton Madrigal, S52.572D Oth intartic fx 8:30a [facility] MD low end l [place] subs for clos fx w routn heal S92.355D Nondisp fx of 5th metatarsal bone, l ft, 7thD M05.732 Rheu arthritis w rheu factor of l wrist w/o org/sys involv Office Visit 07/06/2018 8:45a Orthopedic Shelton Stringer S52.572D Oth intartic fx [facility] MD low end l rad, AT [place] subs for clos fx w routn heal S92.355D Nondisp fx of 5th metatarsal bone, l ft, 7thD Office Visit 06/15/2018 11:00a Orthopedic Shelton Stringer S52.572A Oth intartic [facility] [address] MD Rohan fracture of AT [place] lower end of left radius, init S92.355A Nondisp fx of fifth metatarsal bone, left foot, init Plan of Treatment Future Appointment(s):11/02/2018 3:15 pm - Shelton Madrigal MD at [facility] [address] AT [facility]82/17/2019 - Shelton Madrigal, MDS52.572D Other intraarticular fracture of lower end of left radius, sNew Xrays:Wrist Left 3+ VWS, Ordered: 09/03/18Foot Left 3+ VWS, Ordered: 09/03/18Follow up:Follow up: 2 [id number] Nondisplaced fracture of fifth metatarsal bone, left foot, sNew Xrays:Wrist Left 3+ VWS, Ordered: 09/03/18Foot Left 3+ VWS, Ordered:
[2018-09-10 11:06] VITALS: BP 141/88
[2018-09-10 11:20] LABS: Influenza A Molecular POSITIVE (Negative)
--- NOTE | 2018-09-10 11:20 | UC ---
General HPI - HPI Summary HPI Summary: HEre with friend - states has had worsening cough and congestion for the past 3 days. Low grade temp of 99-100. +Body aches started today. Frontal H/A. Cough and SOB. Is smoking. Used her nebulizer at 7 am which did help. No CP. 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 Took sudafed - helped some. +Nausea and and diarrhea. No vomiting. Good liquid intake. PMHx; reviewed . Meds: reviewed - History of Current Complaint Chief Complaint: UCRespiratory Stated Complaint: HEADACHE, NAUSEA, COUGH Time Seen by Provider: 09/10/18 11:08 Pain Intensity: 10 - Allergy/Home Medications Allergies/Adverse Reactions: Allergies Allergy/AdvReac Type Severity Reaction Status Date / Time hepatitis B virus vaccine Allergy Rash Verified 09/10/18 11:06 nitrofurantoin Allergy Vomiting Verified 09/10/18 11:06 Home Medications: Home Medications Albuterol 2.5MG/3ML (0.083%)* [Ventolin 2.5 MG/3 ML NEB.MONICA*] 2.5 mg INH Q4H [History Confirmed 09/10/18] Pseudoephedrine HCl [Sudafed 12 Hour] 120 mg PO ONCE PRN 09/10/18 [History Confirmed 09/10/18] PMH/Surg Hx/FS Hx/Imm Hx Previously Healthy: No Respiratory History: COPD - Surgical History Surgical History: Yes Surgery Procedure, Year, and Place: D&C. PLACIDO THYROID. DEVIATED SEPTUM R EPAIR. NECK LYMPH NODE EXCISION. C- SECTION - Family History Known Family History: Positive: None, Cardiac Disease, Hypertension - Social History Alcohol Use: Occasionally Substance Use Type: None Smoking Status (MU): Heavy Every Day Tobacco Smoker Type: Cigarettes Amount Used/How Often: 1/2 PPD When Did the Patient Quit Smoking/Using Tobacco: 04/18/17 Household Exposure Type: Cigarettes - Immunization History Most Recent Influenza Vaccination: "not yet" 2016 Review of Systems All Other Systems Reviewed And Are Negative: Yes Constitutional: Positive: Fever, Chills ENT: Positive: Sore Throat, Sinus Congestion Respiratory: Positive: Shortness Of Breath, Cough Cardiovascular: Positive: Negative Gastrointestinal: Positive: Diarrhea, Nausea Is Patient Immunocompromised?: Yes - On MTX for RA Physical Exam Triage Information Reviewed: Yes Appearance: Ill-Appearing - mildly ill appearing no respiratory distress Vital Signs: Initial Vital Signs Temp 98.8 F 09/10/18 11:02 Pulse 85 09/10/18 11:02 Resp 18 09/10/18 11:02 BP 141/88 09/10/18 11:02 Pulse Ox 96 09/10/18 11:02 ENT: Positive: Nasal congestion, TMs normal Neck: Positive: Supple, Enlarged Nodes @ - anterior cervical chain Respiratory: Positive: Other: - b/l expiratory wheezing and rhonchi, no increase in work of breathing Cardiovascular: Positive: RRR, No Murmur Abdomen Description: Positive: Nontender, Soft Diagnostics - Radiology CXR Radiology Interpretation Completed By: Radiologist Summary of Radiographic Findings: COPD, no acute finding Course/Dx - Course Course Of Treatment: This is a 57 yr old with COPD and RA on immunosuppressants. Assessment. Mildly ill appearing. Flu A - positive. CXR : COPD, No infiltrate. Plan. Start tamiflu as prescribed. Take medrol dose pack as prescribed. Take Albuterol neb every 4 hours while sick then as needed. Hold methotrexate until acute illness has resolved. Continue to drink plenty of fluids. If symptoms persist or worsen, call PCP or return to ER. Stop smoking - Diagnoses Provider Diagnosis: Influenza A, COPD exacerbation Discharge - Sign-Out/Discharge Documenting (check all that apply): Patient Departure All imaging exams completed and their final reports reviewed: Yes - Discharge Plan Condition: Fair Disposition: HOME Prescriptions: Albuterol 2.5MG/3ML (0.083%)* [Ventolin 2.5 MG/3 ML NEB.MONICA*] 2.5 mg INH Q4H PRN #1 box PRN Reason: Cough methylPREDNISolone [Medrol Dosepak 4 MG*] 0 mg PO .SEE EMELYN INSTRUCTION #1 box Oseltamivir SUSP 75 MG dose* [Tamiflu SUSP 75 MG dose*] 75 mg PO BID #10 oral.syrin Referrals: Angy Coulter MD [Primary Care Provider] - Additional Instructions: Positive for influenza A Start tamiflu as prescribed Take medrol dose pack as prescribed Take Albuterol neb every 4 hours while sick then as needed Hold methotrexate until acute illness has resolved Continue to drink plenty of fluids If symptoms persist or worsen, call PCP or return to ER Stop smoking - Billing Disposition and Condition Condition: FAIR Disposition: Home
== END 2018-09-10 12:05 | disposition home or self-care (01) ==
LOC: UCCORT 10:22
DX: J44.1 Chronic obstructive pulmonary disease with (acute) exacerbation (principal); J09.X2 Influenza due to identified novel influenza A virus with other respiratory manifestations; F17.210 Nicotine dependence, cigarettes, uncomplicated; Z88.1 Allergy status to other antibiotic agents; Z88.7 Allergy status to serum and vaccine
CPT/HCPCS: 71046; 99201; G0463